=== PATIENT | male | born 1955 | race Caucasian/White ===

== ENCOUNTER 2018-03-01 11:43 | Emergency (ER) | payer MEDICARE ==
[~2018-03-01] VITALS: Ht 185.4 cm; Wt 77.0 kg
[~2018-03-01 11:43] MED LIST: ADULT ASPIRIN E81 MG; AMITRIPTYLIN10 MG PO; ATIVAN1 MG PO; BUMETANIDE0.5 M1; CALCIUM CITRATE1 TAB; CARVEDILOL12.5 MG PO; CYMBALTA20 MG PO; DRONABINOL2.5 MG PO; EZETIMIBE10 MG; FENOFIBRATE145 MG PO; GABAPENTIN400 M2 PO; HYDRALAZINE25 MG PO; ISORDIL20 MG PO; LYRICA100 MG PO; MYSOLINE50 M1 PO; OMEGA-2 PO; TRIUMEQ 600-50-1 TAB; VITAMIN D32000 UNIT PO
[2018-03-01 13:36] LABS: HEMOGLOBIN 14.7 g/dl (14.0-18.0); IMMATURE GRANULOCYTES 1.2 % (0.0-1.0); MEAN CELL VOLUME 115.1 fL CALC (80.0-100.0); MEAN CORPUSCULAR HGB 40.3 pG CALC (26.0-32.0); NEUT# 8.6 thou/uL (1.82-7.42); RED BLOOD COUNT 3.65 mill/uL (4.70-6.10); RED CELL DISTRI WIDTH 16.1 % (11.5-15.5)
[2018-03-01 13:41] LABS: ALBUMIN 4.2 g/dL (3.2-5.0); ALKALINE PHOSPHATASE 76 u/l (38-126); ANION GAP 16 (6-22 (CALC)); BUN 13 mg/dL (8-23); BUN/CREATININE RATIO 11 (12-20 (CALC)); CARBON DIOXIDE 32 mmol/l (22-30); CHLORIDE 97 mmol/l (95-108); CREATININE 1.2 mg/dL (0.7-1.3); GFR > 60 ML/MIN (>=60 (CALC)); GFR FOR AFR.AMER. > 60 ML/MIN (>=60 (CALC)); POTASSIUM 4.2 mmol/l (3.5-5.1); SGOT/AST 35 u/l (19-48); SGPT/ALT 33 u/l (11-66); SODIUM 141 mmol/l (137-146); TOTAL PROTEIN 8.2 g/dL (6.3-8.2)
[2018-03-01] MEDS ORDERED: ASPERCREME LIDOCA41 TOP (15:38)
[2018-03-01] MEDS ORDERED: MOTRIN400 MG PO (15:39)
[2018-03-01 16:16] VITALS: BP 133/62
== END 2018-03-01 16:28 | disposition home or self-care (01) ==
LOC: ED 11:43
PROVIDERS: Family Medicine
DX: S20.211A Contusion of right front wall of thorax, initial encounter (principal); S40.011A Contusion of right shoulder, initial encounter; S09.90XA Unspecified injury of head, initial encounter; F17.210 Nicotine dependence, cigarettes, uncomplicated; W01.190A Fall on same level from slipping, tripping and stumbling with subsequent striking against furniture, initial encounter; Z95.810 Presence of automatic (implantable) cardiac defibrillator

== ENCOUNTER 2018-05-25 16:38 | Inpatient (IN) | payer MEDICARE ==
[~2018-05-25] VITALS: Ht 185.4 cm; Wt 76.0 kg
[~2018-05-25 16:38] MED LIST changes: -ADULT ASPIRIN E81 MG; +ADULT ASPIRIN E81 MG PO; +ASPERCREME LIDOCA41 TOP; +MOTRIN400 MG PO
[2018-05-25 17:24] LABS: HEMATOCRIT 44.1 % (39.0-50.0); HEMOGLOBIN 15.8 g/dl (14.0-18.0); IMMATURE GRANULOCYTES 1.4 % (0.0-1.0); MEAN CORPUSCULAR HGB 35.7 pG CALC (26.0-32.0); MEAN CORPUSCULAR HGB CONC 35.8 g/L CALC (32.0-36.0); NEUT# 12.19 thou/uL (1.82-7.42); RED BLOOD COUNT 4.43 mill/uL (4.70-6.10); RED CELL DISTRI WIDTH 14.8 % (11.5-15.5)
[2018-05-25 17:26] LABS: MEAN CELL VOLUME 99.5 fL CALC (80.0-100.0)
[2018-05-25 17:39] LABS: PROTHROMBIN TIME 11.1 SECONDS (9.0-12.5)
[2018-05-25 18:14] LABS: ALKALINE PHOSPHATASE 59 u/l (38-126); BILIRUBIN, TOTAL 3.2 mg/dL (0.0-1.4); BUN 31 mg/dL (8-23); BUN/CREATININE RATIO 43 (12-20 (CALC)); CARBON DIOXIDE 34 mmol/l (22-30); CHLORIDE 94 mmol/l (95-108); CREATININE 0.7 mg/dL (0.7-1.3); GFR > 60 ML/MIN (>=60 (CALC)); GFR FOR AFR.AMER. > 60 ML/MIN (>=60 (CALC)); SGOT/AST 32 u/l (19-48); SGPT/ALT 29 u/l (11-66); TOTAL PROTEIN 7.9 g/dL (6.3-8.2)
[2018-05-25 18:16] LABS: ALBUMIN 3.1 g/dL (3.2-5.0); ANION GAP 8 (6-22 (CALC)); POTASSIUM 3.2 mmol/l (3.5-5.1); SODIUM 133 mmol/l (137-146)
[2018-05-25 21:40] VITALS: BP 108/62
[2018-05-25 22:00] VITALS: BP 98/63
[2018-05-25 22:15] VITALS: BP 100/60
[2018-05-25 22:30] VITALS: BP 93/57
[2018-05-25 22:45] VITALS: BP 107/61
[2018-05-25 23:45] VITALS: BP 84/52
[2018-05-26] VITALS (11 sets, daily range): BP systolic 96–114; BP diastolic 58–69
[2018-05-26 05:01] LABS: HEMATOCRIT 41.9 % (39.0-50.0); HEMOGLOBIN 14.5 g/dl (14.0-18.0); MEAN CELL VOLUME 102.4 fL CALC (80.0-100.0); MEAN CORPUSCULAR HGB 35.5 pG CALC (26.0-32.0); MEAN CORPUSCULAR HGB CONC 34.6 g/L CALC (32.0-36.0); RED BLOOD COUNT 4.09 mill/uL (4.70-6.10); RED CELL DISTRI WIDTH 14.6 % (11.5-15.5)
[2018-05-26 05:18] LABS: ANION GAP 9 (6-22 (CALC)); BUN 25 mg/dL (8-23); BUN/CREATININE RATIO 38 (12-20 (CALC)); CALCULATED LDLCHOLESTEROL 66 mg/dL (62-129 (CALC)); CARBON DIOXIDE 30 mmol/l (22-30); CHLORIDE 102 mmol/l (95-108); CHOLESTEROL HDL RATIO 6.2 (<4.4 (CALC)); CREATININE 0.7 mg/dL (0.7-1.3); GFR > 60 ML/MIN (>=60 (CALC)); GFR FOR AFR.AMER. > 60 ML/MIN (>=60 (CALC)); HDL CHOLESTEROL 17 mg/dL (>=40); MAGNESIUM 1.3 mg/dL (1.6-2.3); POTASSIUM 3.4 mmol/l (3.5-5.1); SODIUM 138 mmol/l (137-146); TOTAL CHOLESTEROL 106 mg/dl (0-199); TOTAL TRIGLYCERIDES 116 mg/dl (30-149); VLDL CHOLESTROL 23 mg/dl (4-45 (CALC))
[2018-05-26] MEDS ORDERED: DULOXETINE HCL60 MG PO (12:01)
[2018-05-26] MEDS ORDERED: EZETIMIBE10 MG PO (12:04)
[2018-05-26] MEDS ORDERED: NEURONTIN600 MG PO (12:09)
[2018-05-26] MEDS ORDERED: TRIUMEQ 600-50-1 TAB PO (12:15)
[2018-05-26] MEDS ORDERED: CARVEDILOL12.5 MG PO (12:21)
[2018-05-26] MEDS ORDERED: HYDRALAZINE25 MG PO (12:25)
[2018-05-26] MEDS ORDERED: OMEGA 31000 MG PO (12:29)
[2018-05-26] MEDS ORDERED: VITAMIN D32000 UNIT PO (12:35)
[2018-05-26] MEDS ORDERED: CALCIUM CITRATE PO (12:58)
[2018-05-26] MEDS ORDERED: BUMETANIDE0.5 MG PO (13:02)
[2018-05-26] MEDS ORDERED: FENOFIBRATE145 MG PO (13:03)
[2018-05-26] MEDS ORDERED: PRIMIDONE50 MG PO (13:13)
[2018-05-27] VITALS (7 sets, daily range): BP systolic 75–94; BP diastolic 53–63
[2018-05-27 04:45] LABS: HEMATOCRIT 40.7 % (39.0-50.0); HEMOGLOBIN 14.1 g/dl (14.0-18.0); MEAN CELL VOLUME 102.5 fL CALC (80.0-100.0); MEAN CORPUSCULAR HGB 35.5 pG CALC (26.0-32.0); MEAN CORPUSCULAR HGB CONC 34.6 g/L CALC (32.0-36.0); RED BLOOD COUNT 3.97 mill/uL (4.70-6.10); RED CELL DISTRI WIDTH 14.6 % (11.5-15.5)
[2018-05-27 04:55] LABS: ANION GAP 9 (6-22 (CALC)); BUN 16 mg/dL (8-23); BUN/CREATININE RATIO 25 (12-20 (CALC)); CARBON DIOXIDE 27 mmol/l (22-30); CHLORIDE 103 mmol/l (95-108); CREATININE 0.6 mg/dL (0.7-1.3); GFR > 60 ML/MIN (>=60 (CALC)); GFR FOR AFR.AMER. > 60 ML/MIN (>=60 (CALC)); POTASSIUM 3.9 mmol/l (3.5-5.1); SODIUM 135 mmol/l (137-146)
[2018-05-27 05:15] LABS: IMMATURE GRANULOCYTES 9.1 % (0.0-1.0); PLATELET COUNT 169 thou/uL (130-400)
[2018-05-27 05:16] LABS: BAND 2 % (0-8); MANUAL DIFFERENTIAL YES; OVALOCYTES FEW; TOXIC GRANULATION FEW
== END 2018-05-27 15:40 | disposition short-term general hospital (02) | DRG 974 ==
LOC: ED 16:38 → ED-I 17:10 → ED 17:10 → ED-I 18:07 → ED 18:32 → ICU 18:33 → MS2 18:33 → ICU 21:55
PROVIDERS: Emergency Medicine; Nurse Practitioner Family; ADMIT Internal Medicine; ATTEND Internal Medicine
DX: B20 Human immunodeficiency virus [HIV] disease (principal); A41.9 Sepsis, unspecified organism; J15.6 Pneumonia due to other Gram-negative bacteria; I26.99 Other pulmonary embolism without acute cor pulmonale; J91.8 Pleural effusion in other conditions classified elsewhere; I11.0 Hypertensive heart disease with heart failure; I50.22 Chronic systolic (congestive) heart failure; I42.9 Cardiomyopathy, unspecified; E87.1 Hypo-osmolality and hyponatremia; R04.2 Hemoptysis; M19.90 Unspecified osteoarthritis, unspecified site; E78.5 Hyperlipidemia, unspecified; G62.9 Polyneuropathy, unspecified; J44.9 Chronic obstructive pulmonary disease, unspecified; F32.9 Major depressive disorder, single episode, unspecified; F17.210 Nicotine dependence, cigarettes, uncomplicated; E83.42 Hypomagnesemia; E87.6 Hypokalemia; R09.02 Hypoxemia; Z95.810 Presence of automatic (implantable) cardiac defibrillator
CPT/HCPCS: J1650; J3370; J3475; Q9967

== ENCOUNTER 2019-04-30 07:29 | Emergency (ER) | payer MEDICARE, OTHER ==
[~2019-04-30] VITALS: Ht 185.4 cm; Wt 100.0 kg
[~2019-04-30 07:29] MED LIST changes: +BUMETANIDE0.5 MG PO; +CALCIUM CITRATE PO; +DULOXETINE HCL60 MG PO; +EZETIMIBE10 MG PO; +NEURONTIN600 MG PO; +OMEGA 31000 MG PO; +PRIMIDONE50 MG PO; +TRIUMEQ 600-50-1 TAB PO
[2019-04-30 08:14] LABS: HEMATOCRIT 43.4 % (39.0-50.0); HEMOGLOBIN 14.1 g/dl (14.0-18.0); IMMATURE GRANULOCYTES 1.2 % (0.0-5.0); MEAN CELL VOLUME 100.2 fL CALC (80.0-100.0); MEAN CORPUSCULAR HGB 32.6 pG CALC (26.0-32.0); MEAN CORPUSCULAR HGB CONC 32.5 g/L CALC (32.0-36.0); NEUT# 3.22 thou/uL (1.82-7.42); RED BLOOD COUNT 4.33 mill/uL (4.70-6.10); RED CELL DISTRI WIDTH 15.5 % (11.5-15.5)
[2019-04-30 08:35] LABS: ALBUMIN 4.3 g/dL (3.2-5.0); ALKALINE PHOSPHATASE 80 u/l (38-126); ANION GAP 15 (6-22 (CALC)); BILIRUBIN, TOTAL 0.3 mg/dL (0.0-1.4); BUN 22 mg/dL (8-23); BUN/CREATININE RATIO 16 (12-20 (CALC)); CARBON DIOXIDE 30 mmol/l (22-30); CHLORIDE 102 mmol/l (95-108); CREATININE 1.4 mg/dL (0.7-1.3); GFR 51 ML/MIN (>=60 (CALC)); GFR FOR AFR.AMER. > 60 ML/MIN (>=60 (CALC)); POTASSIUM 4.4 mmol/l (3.5-5.1); SGOT/AST 40 u/l (19-48); SODIUM 142 mmol/l (137-146); TOTAL PROTEIN 9.1 g/dL (6.3-8.2)
[2019-04-30 09:45] VITALS: BP 117/69
== END 2019-04-30 10:01 | disposition home or self-care (01) ==
LOC: ED 07:29
PROVIDERS: Emergency Medicine
DX: S80.212A Abrasion, left knee, initial encounter (principal); I10 Essential (primary) hypertension; J44.9 Chronic obstructive pulmonary disease, unspecified; F17.200 Nicotine dependence, unspecified, uncomplicated; W17.89XA Other fall from one level to another, initial encounter; Y93.89 Activity, other specified; Z95.0 Presence of cardiac pacemaker; Z79.01 Long term (current) use of anticoagulants; Z21 Asymptomatic human immunodeficiency virus [HIV] infection status

== ENCOUNTER 2019-05-31 10:54 | Inpatient (IN) | payer MEDICARE, OTHER ==
[~2019-05-31] VITALS: Ht 185.4 cm; Wt 98.0 kg
[~2019-05-31 10:54] MED LIST changes: -NEURONTIN600 MG PO; +NEURONTIN800 MG PO
--- NOTE | 2019-05-31 11:04 | NUR ---
PATIENT TO ROOM VIA EMS AND PHYSICIAN NOTIFIED OF PATIENT STATUS
--- NOTE | 2019-05-31 11:12 | NUR ---
PATIENT AMBLE TO VERIFY MEDICATIONS BUT UNABLE TO VERIFY FREQUENCY AND AM VERSUS PM MEDICATIONS
[2019-05-31 11:28] LABS: HEMOGLOBIN 13.1 g/dl (14.0-18.0); IMMATURE GRANULOCYTES 1.4 % (0.0-5.0); MEAN CELL VOLUME 96.5 fL CALC (80.0-100.0); MEAN CORPUSCULAR HGB 32.4 pG CALC (26.0-32.0); MEAN CORPUSCULAR HGB CONC 33.6 g/L CALC (32.0-36.0); NEUT# 6.61 thou/uL (1.82-7.42); RED BLOOD COUNT 4.04 mill/uL (4.70-6.10); RED CELL DISTRI WIDTH 15.7 % (11.5-15.5)
--- NOTE | 2019-05-31 11:30 | NUR ---
PATIENT DENIES ANY COUGH/COLD SYMPTOMS OR SOB. MILD CRACKLES NOTED TO LEFT LOWER LOBE NOTED. O2 IN PLACE AT 2L/MIN VIA NASAL CANNULA. PATIENT MEDICATED WITH 125 MG OF SOLU MEDROL IV PUSH AND IV FLUIDS INFUSING WELL. CALL LIGHT WITHIN REACH. WILL CONTINUE TO MONITOR.
[2019-05-31 11:48] LABS: ALKALINE PHOSPHATASE 56 u/l (38-126); ANION GAP 15 (6-22 (CALC)); BUN 16 mg/dL (8-23); BUN/CREATININE RATIO 11 (12-20 (CALC)); CARBON DIOXIDE 26 mmol/l (22-30); CHLORIDE 103 mmol/l (95-108); CREATININE 1.4 mg/dL (0.7-1.3); GFR 51 ML/MIN (>=60 (CALC)); GFR FOR AFR.AMER. > 60 ML/MIN (>=60 (CALC)); POTASSIUM 4.4 mmol/l (3.5-5.1); SGOT/AST 49 u/l (19-48); SODIUM 140 mmol/l (137-146); TOTAL PROTEIN 8.7 g/dL (6.3-8.2)
[2019-05-31 11:50] LABS: BILIRUBIN, TOTAL 0.5 mg/dL (0.0-1.4)
--- NOTE | 2019-05-31 11:51 | NUR ---
AT BEDSIDE TO DISCUSS RESULTS WITH PATIENT.
--- NOTE | 2019-05-31 12:03 | NUR ---
Spoke with patient regarding releasing lab result for his diagnosis of carbon monoxide poisoning to [facility]. Patient gives verbal permission to release information.
--- NOTE | 2019-05-31 12:32 | NUR ---
REPORT GIVEN TO FRANCOIS ZAPATA. WAITING ON FLOOR ORDERS.
--- NOTE | 2019-05-31 12:53 | NUR ---
PATIENT TRANSPORTED TO [facility] VIA [facility] WITH TELE AND O2 IN PLACE. VANCO TO CONTINUE INFUSING. FRANCOIS ZAPATA AT BEDSIDE. CARE RELINQUISHED.
--- NOTE | 2019-05-31 12:56 | NUR ---
RECEIVED PT FROM ER VIA STRETCHER. PT FROM STRECHER TO SCALE TO BED WITH UNSTEADY GAIT. ADMISSION ASSESSMENT COMPLETE, SEE ADMISSION FOR COMPLETE ASSESSMENT. PT DENIES ANY COMPLAINTS AT THIS TIME. DENIES COUGH, SHORTNESS OF BREATH, DIZZINESS. IV SITE IN LEFT HAND PATENT. ORIENTED TO CALL LIGHTS AND ROOM AND DISCUSSED PLAN OF CARE.
[2019-05-31 13:06] VITALS: BP 129/78
--- NOTE | 2019-05-31 13:48 | NUR ---
PT REQUEST FOOD, MISSED LUNCH. KITCHEN NOTIFIED.
--- NOTE | 2019-05-31 14:05 | NUR ---
Pharmacy called to clarify patients home medications. While patient knows what he is taking he does not at which times he is taking the medication due to the being prepacked for him. Patient stated he will have a family member bring in his medications. Advised patient to call for pharmacy when medication is brought in.
[2019-05-31 14:23] LABS: URINE BILIRUBIN - DIPSTICK NEGATIVE (NEGATIVE); URINE BLOOD DIPSTICK NEGATIVE (NEGATIVE); URINE COLOR YELLOW; URINE GLUCOSE - DIPSTICK NEGATIVE (NEGATIVE); URINE KETONE NEGATIVE (NEGATIVE); URINE LEUK ESTERASE NEGATIVE (NEGATIVE); URINE NITRITE - DIPSTICK NEGATIVE (Negative); URINE PH 7.5 (4.5-8.0); URINE PROTEIN - DIPSTICK TRACE mg/dL (NEG-TRACE); URINE SPECIFIC GRAVITY <=1.005; URINE UROBILINOGEN - DIPSTICK 0.2 E.U./dL (0.2)
[2019-05-31] MEDS ORDERED: ELIQUIS5 MG PO (14:32)
[2019-05-31] MEDS ORDERED: AMITRIPTYLIN25 MG PO (14:33)
[2019-05-31] MEDS ORDERED: SPIRONOLACT25 MG PO (14:34)
[2019-05-31] MEDS ORDERED: PHENERGAN25 MG/TAB PO (14:35)
[2019-05-31 15:00] VITALS: BP 125/71
--- NOTE | 2019-05-31 16:05 | NUR ---
PT WATCHING TV. NO SIGNS OF DISTRESS. ANTIBITOICS INFUSING. IV SITE PATENT. DENIES ANY NEEDS.
--- NOTE | 2019-05-31 17:36 | NUR ---
DR PERSON AT PTS BEDSIDE.
--- NOTE | 2019-05-31 19:04 | NUR ---
REPROT RECEIVED FROM FRANCOIS GARCÍA. PT RESTING IN BED WITH EYES CLOSED. RESPIRATIONS EVEN AND UNLABORED ON RA. SAFETY PRECAUTIONS IN PLACE. WILL CONTINUE TO MONITOR.
[2019-05-31 19:54] VITALS: BP 135/71
--- NOTE | 2019-05-31 20:10 | NUR ---
PT RESTING IN BED WITH EYES CLOSED. EASILY AROUSED TO SPEECH. RESPIRATIONS EVEN AND UNLABORED. LUNGS SOUND DIMINISHED. TELE IN PLACE. IV #18 LH, PATENT AND APPEARS HEALTHY. PT DENIES HAVING ANY PAIN OR DISCOMFORT AT THIS TIME. SAFETY PRECAUTIONS IN PLACE. WILL CONTINUE TO MONITOR.
[2019-06-01 00:11] VITALS: BP 99/54
--- NOTE | 2019-06-01 00:58 | NUR ---
PT RESTING IN BED. TELE IN PLACE. RESPIRATIONS EVEN AND UNLABORE. SAFETY PRECAUTIONS IN PLACE. WILL CONTINUE TO MONITOR.
[2019-06-01 04:35] VITALS: BP 145/76
--- NOTE | 2019-06-01 05:49 | NUR ---
PT RESTING IN BED. NO S/S OF DISTRESS AT THIS TIME. SAFETY PRECAUTIONS IN PLACE. WILL CONTINUE TO MONITOR.
--- NOTE | 2019-06-01 06:45 | NUR ---
RECIEVED REPORT FROM FRANCOIS ALVARENGA. ASSUMED PT CARE.
[2019-06-01 08:00] VITALS: BP 121/67
--- NOTE | 2019-06-01 08:00 | NUR ---
PT RESTING IN BED, A&OX3, ABLE TO MAKE NEEDS KNOWN. ASSESSMENT COMPLETED. TELEMTRY MONITORED VIA ED. PT OFFERS NO COMPLAINTS AT THIS TIME. CALL LIGHT IN REACH. WILL MONITOR.
--- NOTE | 2019-06-01 12:22 | NUR ---
KURTIS MCDONALD AT BEDSIDE TO DISCUSS PLAN OF CARE AND DISCHARGE. PT RESTING IN BED EATING LUNCH. OFFERS NO COMPLAINTS AT THIS TIME. CALL LIGHT IN REACH. WILL MONITOR.
--- NOTE | 2019-06-01 13:00 | NUR ---
DR. PUENTE AT BEDSIDE FOR ASSESSMENT AND TO DISCUSS PLAN OF CARE. WILL MONITOR.
--- NOTE | 2019-06-01 13:17 | NUR ---
RT AT BEDSIDE FOR ABG.
[2019-06-01 15:54] VITALS: BP 102/58
--- NOTE | 2019-06-01 16:15 | NUR ---
IV site discontinued, cath intact. No edema , no redness, voices no discomfort.
[2019-06-01 17:48] VITALS: BP 102/58
--- NOTE | 2019-06-01 18:08 | NUR ---
Discharge instructions given. Patient verbalizes understanding of same. Discharged in stable condition via Wheelchair to [facility] with *Other. All belongings sent with pt.
== END 2019-06-01 18:05 | DRG 918 ==
LOC: ED 10:54 → ED-I 11:43 → ED 11:53 → MS2 12:03 → ED 12:03 → ED-I 12:09 → ED 12:09 → MS2 06-01 18:05
PROVIDERS: Family Medicine; ADMIT Internal Medicine; ATTEND Internal Medicine
DX: T58.91XA Toxic effect of carbon monoxide from unspecified source, accidental (unintentional), initial encounter (principal); I42.9 Cardiomyopathy, unspecified; I11.0 Hypertensive heart disease with heart failure; I50.9 Heart failure, unspecified; J44.9 Chronic obstructive pulmonary disease, unspecified; M19.90 Unspecified osteoarthritis, unspecified site; E78.5 Hyperlipidemia, unspecified; G62.9 Polyneuropathy, unspecified; F17.210 Nicotine dependence, cigarettes, uncomplicated; I95.9 Hypotension, unspecified; Y92.099 Unspecified place in other non-institutional residence as the place of occurrence of the external cause; Z21 Asymptomatic human immunodeficiency virus [HIV] infection status; Z79.01 Long term (current) use of anticoagulants; Z86.711 Personal history of pulmonary embolism; Z95.810 Presence of automatic (implantable) cardiac defibrillator